=== PATIENT | female | born 1960 | race Caucasian/White ===

== ENCOUNTER 2016-12-20 08:53 | Day surgery (SDC) | payer OTHER ==
[~2016-12-20] VITALS: Ht 160 cm; Wt 48.1 kg
[~2016-12-20 08:53] MED LIST: 0.9% Sodium Chloride 1,000 ML IV SCH; ASTA4CAP PO; B12 SUBMUCOSAL; CALCIT PO; K2 PO; Sodium Chloride LOK Flush 10 mL Syringe IV PRN; VIT D PO; fentaNYL-PF 50 mCg/mL 2 mL Inj IVPUSH PRN
[2016-12-20 09:07] VITALS: BP 139/83; PULSE 68; RESP 17; O2SAT 98
[2016-12-20] MEDS ORDERED: Ondansetron 2 mg/mL 2 mL Inj ONE (09:28)
[2016-12-20] MEDS ORDERED: Ondansetron 2 mg/mL 2 mL Inj IVPUSH ONE (09:35)
--- NOTE | 2016-12-20 10:08 | PCM.ENDCOL ---
Colonoscopy Date of Service: Dec 20, 2016 Physician Vinicius Santiago MD Pre Procedure Diagnosis: screening FHx colon cancer Post Procedure Dx & Findings: radiation injury and granular colonic mucosa Procedure Colonoscopy PROCEDURE IN DETAIL: Prep adequate Withdrawal time 13 minutes After unremarkable rectal examination the Olympus video colonoscope was inserted patient's anal canal and was advanced to cecum. Landmarks were identified including the ileocecal valve and appendiceal orifice. Scope was withdrawn systematically. Visualized colonic mucosa showed healthy shiny mucosa with normal healthy-appearing vasculature. In the rectosigmoid junction, there was small patch of granular mucosa without couple of centimeters in size. This was biopsied. Around this area, there was also evidence of radiation injury with mucosal atrophy as well as small teleangecsias. In the rectum retroflexion was done which showed hemorrhoids. Anal canal was inspected carefully on the way out and hemorrhoids noted. Impression Radiation injury Granular mucosa status post biopsy Hemorrhoids Recommendation Repeat colonoscopy 5 years Presedation Assessment Risks and Benefits Informed consent was obtained from the patient after all risks and benefits including but not limited to drug reaction, infection, pain, bleeding, perforation, as well as alternatives were discussed. Patient monitoring Continuous pulse oximetry, cardiac monitoring, blood pressure monitoring, IV access, and oxygen at 2L per nasal cannula. Periprocedural Fentanyl: Fentanyl 150mcg Incrementally Midazolam: Midazolam 6mg Incrementally Complications There were no periprocedural complications identified. Post Procedure Plan Post Procedure Recommendations 1. Restrict activities today. 2. Resume normal activities in the morning. 3. Resume medications. 4. Patient informed of normal post procedure side effects as bloating, drowsiness, blood streaking in the stool. 5. average risk CRCS. If colon polyps come back as: -Hyperplastic- can repeat colonoscopy in 10 years -Tubular adenoma- repeat colonoscopy in 5 years -Tubulovillous/villous adenoma- repeat colonoscopy in 3 years -If any dysplasia- return to clinic as soon as possible 6. Please don't hesitate to call me with any questions. Vinicius Santiago MD Dec 20, 2016 10:08
[2016-12-20 10:09] VITALS: BP 104/57; PULSE 74; RESP 14; O2SAT 100
[2016-12-20 10:18] VITALS: BP 122/86; PULSE 86; RESP 16; O2SAT 100
[2016-12-20] MEDS ORDERED: 0.9% Sodium Chloride 1,000 ML IV ONE (10:20)
--- NOTE | 2016-12-23 11:24 | PATH ---
SURGICAL PATHOLOGY Attending Physician:Vinicius Santiago M.D. CASE STATUS: Signed Out PATIENT NAME: LONDON BOWMAN PID: [id number] : 1960 DATE COLLECTED:12/20/2016 17:06 SPECIMEN: Colon, Biopsy CLINICAL HISTORY: 1. RECTAL SIGMOID BX FINAL DIAGNOSIS: 1.RECTAL SIGMOID BIOPSY: COLON MUCOSA WITH ARCHITECTURAL DISTORTION WITHOUT SIGNIFICANT INFLAMMATION CONSISTENT WITH A CHRONIC INACTIVE COLITIS. Negative for dysplasia and malignancy. ICD10 K52.9 NOTE: The changes present within this biopsy are nonspecific as to etiology. The possibility of primary inflammatory bowel disease should be considered, but also the possibility of changes related to previous diverticular disease. GROSS DESCRIPTION: The specimen is received in one formalin filled container labeled with the patient's name, sublabeled "rectal-sigmoid" and consists of a 0.3 x 0.2 x 0.2 CM portion of tissue which is entirely submitted in one cassette. 12/20/2016 DAC MICRO DESCRIPTION: See diagnosis. ICD-9 CODES: CPT CODES: 1: 20769 Electronically Signed Out Phi Louis MD [facility] [address], [place] [address] Technical component performed at [facility], [address] [place] [address] Ave[address], [place], [address]
== END 2016-12-20 23:59 | disposition home or self-care (01) ==
LOC: END 08:53
PROVIDERS: ATTEND Internal Medicine
DX: Z12.11 Encounter for screening for malignant neoplasm of colon (principal); Z83.71 Family history of colonic polyps; K52.89 Other specified noninfective gastroenteritis and colitis; K64.9 Unspecified hemorrhoids; T66.XXXA Radiation sickness, unspecified, initial encounter; Z92.3 Personal history of irradiation
CPT/HCPCS: 45380; 99153; G0500; J2250; J2405; J3010; J7030